=== PATIENT | male | born 2000 | race Two or more races ===

== ENCOUNTER 2018-01-10 13:06 | Emergency (ER) | payer SELFPAY ==
[2018-01-10] MEDS ORDERED: LIDOCAINE 1%-EPI 1:100,000 20 ML VIAL ONE (13:21)
[2018-01-10 15:35] VITALS: BP 124/80
--- NOTE | 2018-01-10 15:35 | NUR ---
Patient discharged to home in stable condition. Written and verbal after care instructions given. Patient verbalizes understanding of instruction.
== END 2018-01-10 15:37 | disposition home or self-care (01) ==
LOC: ER 13:07
DX: S01.01XA Laceration without foreign body of scalp, initial encounter (principal); S51.012A Laceration without foreign body of left elbow, initial encounter; S51.011A Laceration without foreign body of right elbow, initial encounter; W25.XXXA Contact with sharp glass, initial encounter; Y93.89 Activity, other specified; Y92.89 Other specified places as the place of occurrence of the external cause; Y99.8 Other external cause status
CPT/HCPCS: 12002; 73070 ×2; 99284; A6402 ×2; J3490; A4606; Z7610